=== PATIENT | female | born 2000 | race Hispanic/Latino ===

== ENCOUNTER → 2024-10-27 12:19 | Outpatient (REF) | payer OTHER, SELFPAY ==
[2024-10-27 14:03] LABS: % Basophils 0.5 % (0-2); % Eosinophils 1.1 % (0-6); % Immature Granulocytes 0.3 % (0-0.5); % Lymphocytes 25.7 % (20.5-51.1); % Monocytes 10.3 % (1.7-9.3); % Neutrophils 62.1 % (42.2-75.2); Absolute Eosinophils 0.1 10^3/uL (0-0.7); Absolute Lymphocytes 1.7 10^3/uL (1.2-3.4); Absolute Monocytes 0.7 10^3/uL (0.1-0.6); Hematocrit 35.9 % (37.0-47.0); Hemoglobin 11.6 g/dL (12.0-16.0); Mean Corp Hgb Conc. 32.3 g/dL (33.0-37.0); Mean Corpuscular Hgb 26.7 pg (27.0-31.0); Mean Corpuscular Volume 82.5 fL (81.0-99.0); Mean Platelet Volume 10.1 fL (7.4-10.4); Nucleated Red Blood Cells % 0 %; Platelet Count 429 10^3/uL (130-400); Red Blood Cell Count 4.35 10^6/uL (4.20-5.40); White Blood Cell Count 6.5 10^3/uL (4.8-10.8)
[2024-10-27 14:27] LABS: ALT (SGPT) 29 U/L (0-35); AST (SGOT) 28 U/L (14-36); Alkaline Phosphatase 102 U/L (38-126); Blood Urea Nitrogen 6 mg/dl (7-17); Calcium 9.3 mg/dl (8.4-10.2); Chloride 103 mmol/L (98-107); Glucose 85 mg/dl (70-99); HDL Cholesterol 49 mg/dl; LDL Cholesterol, Calculated 130 mg/dl; Magnesium 2.3 mg/dl (1.6-2.3); Potassium 4.3 mmol/L (3.5-5.1); Sodium 141 mmol/L (135-145); Total Bilirubin 0.4 mg/dl (0.2-1.3); Total Cholesterol 203 mg/dl (50-199); Total Protein 7.6 g/dl (6.3-8.2); Triglyceride 121 mg/dl (10-149); Very Low Density Lipoprotein 24 mg/dl (0-30); eGFR > 60.00
[2024-10-27 14:36] LABS: Albumin 4.6 g/dl (3.5-5.0); Carbon Dioxide 25 mmol/L (22-30); Vitamin D, 25-OH*** 19.2 ng/mL (30-80)
[2024-10-27 14:49] LABS: TSH Reflex To Free T4 0.72 uIU/ml (0.47-4.68)
[2024-10-27 15:10] LABS: Vitamin B12 344 pg/ml (239-931)
[2024-10-28 09:30] LABS: Glycohemoglobin (HgbA1c) 5.3 % (4.0-5.6)
== END ==
LOC: CLINIC 12:19
PROVIDERS: ATTENDING PHYSICIAN Student in an Organized Health Care Education/Training Program
DX: Z00.00 Encounter for general adult medical examination without abnormal findings (principal)
CPT/HCPCS: 36415; 80053; 80061; 82306; 82607; 83036; 83735; 84443; 85025; 86900; 86901; 93005

== ENCOUNTER 2025-04-01 16:02 | Emergency (ER) | payer SELFPAY ==
[2025-04-01 16:04] VITALS: BP 114/71
--- NOTE | 2025-04-01 17:42 | ED.GENMED ---
History of Present Illness
General
Chief Complaint: Skin Surface Trauma
Source: patient
Time Seen by Provider: 04/01/25 17:31
History of Present Illness
History of Present Illness:
24-year-old female with past medical history of GERD and anxiety presenting the emergency department after she accidentally stepped on a piece of metal that broke and was slightly lodged into the superficial skin of her right foot noting she was
able to remove the foreign body in its entirety however she was unsure of her last tetanus vaccine which is why she decided come to the ER. No other injuries were sustained.
Past History
Past History
ED Past Medical History: GERD and Psychiatric (anxiety)
ED Past Surgical History: None
Social History
Tobacco: Non-smoker
Alcohol: None
Drug: None
Personal: Single
Living: with family
Employment: Student
Family History
Family History: Negative Early CAD, CAD or Sudden
Review of Systems
Review of Systems
All Other Systems: ROS reviewed and negative except as documented in HPI and ROS
Phy Exam
Physical Exam
Physical Exam:
GENERAL: Alert , in no apparent distress
EYE: conjunctiva clear
Head: Normocephalic atraumatic
NECK: Supple,
ENT: mmm.
LUNGS: no acute respiratory distress
NEUROLOGICAL: Alert and oriented
SKIN: Warm and dry, very small puncture to right distal foot, lateral aspect at level of distal 5th metatarsal
MUSCULOSKELETAL: well perfused.
PSYCH: Normal and appropriate interaction.
Scores
Heart Failure Risk
Heart Failure Risk Score: Not Applicable
Heart Score for Chest Pain Patients
STEMI patient?: Not applicable
Withdrawal Assessment of Alcohol
Withdrawal Assessment Completed?: Not applicable
Course
Orders/Labs/Results
Orders:
Orders
04/01/25 17:41
Tetanus/Diphth/Acelpertussis [Adacel] 0.5 ml IM .ONCE ONE
Vital Signs
Initial and Last Documented VS:
Initial Vital Signs
Temp Pulse Resp BP Pulse Ox
98.1 F 98 16 114/71 97
04/01/25 16:04 04/01/25 16:04 04/01/25 16:04 04/01/25 16:04 04/01/25 16:04
Last Documented Vital Signs
Temp Pulse Resp BP Pulse Ox
98.1 F 98 16 114/71 97
04/01/25 16:04 04/01/25 16:04 04/01/25 16:04 04/01/25 16:04 04/01/25 16:04
MDM/Problems Addressed
Differential Diagnosis Includes:
superficial skin abrasion, no signs of retained FB, no symptoms to suggest infection
MDM/Problems Addressed:
24-year-old female presenting the ER for evaluation after small superficial puncture wound to the right foot. Patient unsure of last tetanus so we will update this. No other signs of retained foreign body. Patient is otherwise stable for
discharge home and aware of return precautions.
*Pulse Oximetry
Patient hypoxic: no
*Critical Care Note
Total Time (30-74mins, 75-104mins- exclusive of procedures): Not Applicable
ED Attending Note
-
Portions of this chart may have been created with voice recognition software.� Occasional wrong word or��sound alike� substitutions may have occurred due to the inherent limitations of voice recognition software.
Discharge Plan
Departure
Patient Disposition: Home (Routine Discharge)
Date of Disposition: 04/01/25
Time of Disposition: 17:42
Patient with high blood pressure during this ER visit?: No
Discharge Problem:
Puncture wound of right foot
Instructions: Wound Care (DC)
Prescriptions:
No Action
ondansetron 4 MG tablet,disintegrating
4 mg PO TIDPRN PRN (Reason: nausea) Qty: 7 0RF
pantoprazole 40 MG tablet,delayed release (DR/EC)
40 mg PO DAILY Qty: 30 0RF
alprazolam 0.5 MG tablet
0.5 mg PO HS PRN (Reason: anxiety, insomnia) Qty: 6 0RF
sucralfate [Carafate] 1 GM/10 ML suspension
1 gm PO DAILY Qty: 300 0RF
Referrals:
Bettye Rojas MD [Family Provider] -
Interventions
Interventions:
*Risk Screen - Suicide Last Done: 04/01/25 16:04
*Neglect/Abuse Screening Last Done: 04/01/25 16:06
*Nursing Disposition Last Done: 04/01/25 17:54
ED-Skin Assessment Last Done: 04/01/25 17:42
Discharge Date and Time
Discharge Date/Time: 04/01/25 17:55
Print Language: NOR[place]GI[place]
[2025-04-01] MEDS: ADACEL 0.5 ML IM (17:48)
== END 2025-04-01 17:55 | disposition home or self-care (01) ==
LOC: EMR 16:02
PROVIDERS: EMERGENCY PHYSICIAN Emergency Medicine; FAMILY PHYSICIAN Student in an Organized Health Care Education/Training Program
DX: S91.331A Puncture wound without foreign body, right foot, initial encounter (principal); W22.8XXA Striking against or struck by other objects, initial encounter
CPT/HCPCS: 90471; 99282; 90715

== ENCOUNTER → 2025-09-02 12:45 | Outpatient (REF) | payer OTHER, SELFPAY ==
[2025-09-02 13:26] LABS: Urine Character Clear (Clear)
[2025-09-02 14:45] LABS: Microalbumin, Random Urine < 0.6 mg/dl (0.6-1.7)
== END ==
LOC: CLINIC 12:45
PROVIDERS: ATTENDING PHYSICIAN Internal Medicine
DX: R35.0 Frequency of micturition (principal)
CPT/HCPCS: 81003; 82043

== ENCOUNTER → 2025-09-07 10:57 | Outpatient (REF) | payer OTHER, SELFPAY | LOC: CLINIC 10:57 | PROVIDERS: ATTENDING PHYSICIAN Internal Medicine | DX: R35.0 Frequency of micturition (principal) | CPT/HCPCS: 87338 ==

== ENCOUNTER 2025-10-05 10:50 | Emergency (ER) | payer SELFPAY ==
[2025-10-05 10:53] VITALS: BP 117/68
--- NOTE | 2025-10-05 11:32 | ED.GENMED ---
History of Present Illness
General
Chief Complaint: Ear Problem
Source: patient
Exam Limitations: none
Time Seen by Provider: 10/05/25 11:13
History of Present Illness
History of Present Illness:
25-year-old female limited past medical history week ago had a flight, during the flight she felt nauseous, pain in her right ear with pressure since then she has had a muffled sound in her right ear decreased hearing no headache no sinus
congestion, been unable to pop that ear with pressure
Past History
Past History
ED Past Medical History: GERD and Psychiatric (anxiety)
ED Past Surgical History: None
Social History
Tobacco: Non-smoker
Alcohol: None
Drug: None
Personal: Single
Living: with family
Employment: Employed
Family History
Family History: Negative Early CAD, CAD or Sudden
Review of Systems
Review of Systems
All Other Systems: Not applicable
Constitutional: Denies fever
EENT: Reports other (Ear muffled)
Phy Exam
Physical Exam
Physical Exam:
Physical Exam
General: no apparent distress, not acutely ill
Neck: Fluid behind the right tympanic membranes no otitis media no otitis externa no pain with pulling on the tragus
Heart: s1/s2 regular rate and rhythm, no murmur. equal radial pulses.
Lungs: no acute respiratory distress.
Neuro: alert and oriented. no focal neurological deficits
Skin: no rash
Psychiatric: well kept. interactive and cooperative
Extremities: no edema. no calf tenderness. negative homans. good distal pulses
Course
Orders/Labs/Results
Orders:
Orders
10/05/25 11:29
Prednisone [Deltasone] 50 mg PO NOW STA
Vital Signs
Initial and Last Documented VS:
Initial Vital Signs
Temp Pulse Resp BP Pulse Ox
98.3 F 98 16 117/68 98
11/04/25 10:53 10/05/25 10:53 10/05/25 10:53 10/05/25 10:53 10/05/25 10:53
Last Documented Vital Signs
Temp Pulse Resp BP Pulse Ox
98.3 F 98 16 11768 98
10/05/25 10:53 10/05/25 10:53 10/05/25 10:53 10/05/25 10:53 10/05/25 11:34
MDM/Problems Addressed
Differential Diagnosis Includes:
Otitis media/externa eustachian tube dysfunction
MDM/Problems Addressed:
Decreased hearing
*Pulse Oximetry
SaO2: 98
Oxygen Mode of Delivery: Room air
Patient hypoxic: no
*Critical Care Note
Total Time (30-74mins, 75-104mins- exclusive of procedures): Not Applicable
Update Note
Update Note:
Update nontoxic afebrile, suspect eustachian tube dysfunction will provide nasal oral steroids ENT follow-up
ED Attending Note
-
Portions of this chart may have been created with voice recognition software.� Occasional wrong word or��sound alike� substitutions may have occurred due to the inherent limitations of voice recognition software.
Discharge Plan
Departure
Patient Disposition: Home (Routine Discharge)
Date of Disposition: 10/05/25
Time of Disposition: 11:29
Patient with high blood pressure during this ER visit?: No
Condition: Good
Discharge Problem:
Eustachian tube dysfunction
Instructions: Eustachian tube problems
Prescriptions:
New
methylprednisolone [Medrol (Haroldo)] 4 mg tablets,dose pack
See Rx Instructions .ROUTE .COMPLEX Qty: 21 0RF
Rx Instructions:
for 6 days
mometasone [Nasonex 24hr Allergy] 50 mcg/actuation spray,non-aerosol
2 spray intranasal DAILY PRN (Reason: allergy symptoms) Qty: 17 1RF
No Action
ondansetron 4 MG tablet,disintegrating
4 mg PO TIDPRN PRN (Reason: nausea) Qty: 7 0RF
pantoprazole 40 MG tablet,delayed release (DR/EC)
40 mg PO DAILY Qty: 30 0RF
alprazolam 0.5 MG tablet
0.5 mg PO HS PRN (Reason: anxiety, insomnia) Qty: 6 0RF
sucralfate [Carafate] 1 GM/10 ML suspension
1 gm PO DAILY Qty: 300 0RF
Referrals:
Denver Herron MD [Family Provider, Internal Medicine]
Fransisco Vasquez MD [Active, ENT] - Next open appointment
Interventions
Interventions:
*Risk Screen - Suicide Last Done: 10/05/25 10:53
*Neglect/Abuse Screening Last Done: 10/05/25 10:53
Discharge Date and Time
Print Language: [id number]
[2025-10-05] MEDS: DELTASONE 50 MG PO (11:36)
[2025-10-05 11:44] VITALS: BP 105/62
== END 2025-10-05 11:45 | disposition home or self-care (01) ==
LOC: EMR 10:50
PROVIDERS: EMERGENCY PHYSICIAN Emergency Medicine; FAMILY PHYSICIAN Internal Medicine
DX: H69.91 Unspecified Eustachian tube disorder, right ear (principal); K21.9 Gastro-esophageal reflux disease without esophagitis; F41.9 Anxiety disorder, unspecified
CPT/HCPCS: 99283

== ENCOUNTER → 2025-10-05 11:45 | Outpatient (REF) | payer OTHER, SELFPAY ==
[2025-10-05 13:34] LABS: Hematocrit 38.5 % (37.0-47.0); Hemoglobin 13.0 g/dL (12.0-16.0); Mean Corp Hgb Conc. 33.8 g/dL (33.0-37.0); Mean Corpuscular Volume 87.5 fL (81.0-99.0); Nucleated Red Blood Cells % 0 %; Platelet Count 433 10^3/uL (130-400); Red Cell Dist. Width 13.2 % (11.5-14.5)
[2025-10-05 13:57] LABS: ALT (SGPT) 17 U/L (0-35); AST (SGOT) 20 U/L (14-36); Albumin 4.8 g/dl (3.5-5.0); Alkaline Phosphatase 71 U/L (38-126); Blood Urea Nitrogen 7 mg/dl (7-17); C-Reactive Protein 9.90 mg/L (0.0-10.00); Calcium 9.6 mg/dl (8.4-10.2); Carbon Dioxide 24 mmol/L (22-30); Chloride 102 mmol/L (98-107); Glucose 82 mg/dl (70-99); Potassium 4.1 mmol/L (3.5-5.1); Sodium 136 mmol/L (135-145); Total Protein 8.4 g/dl (6.3-8.2); eGFR > 60.00
[2025-10-07 02:30] LABS: ANA, IgG Reflex to HEp-2 None Detected (None Detected)
[2025-10-07 10:58] LABS: Rheumatoid Agglutinin Less Than 10 IU (<10 IU)
== END ==
LOC: REG 11:45
PROVIDERS: ATTENDING PHYSICIAN Internal Medicine
DX: M79.7 Fibromyalgia (principal)
CPT/HCPCS: 36415; 80053; 84443; 85025; 85652; 86038; 86140; 86430